=== PATIENT | male | born 1980 | race Caucasian/White ===

== ENCOUNTER 2023-03-31 23:03 | Emergency (ER) | payer BC ==
[2023-03-31] MEDS ORDERED: Lidocaine 1% w/Epinephrine 1:200K 30 ML VIAL ONE (23:34)
== END 2023-04-01 00:01 | disposition home or self-care (01) ==
LOC: CSHERS 23:03
DX: L76.22 Postprocedural hemorrhage of skin and subcutaneous tissue following other procedure (principal); I10 Essential (primary) hypertension
CPT/HCPCS: 12011

== ENCOUNTER 2024-03-20 17:46 | Emergency (ER) | payer BC ==
[2024-03-20 18:15] LABS: Bilirubin Neg (Negative); Blood, Urine Negative (Negative); Clarity Clear (Clear); Glucose, Urine (Dipstick) 250 mg/dL (Negative); Ketone, Urine Negative (Negative); Leukocyte Negative (Negative); Nitrite Negative (Negative); Protein, Urine (Dipstick) 15 mg/dl (Neg-Trace); Urobilinogen Normal mg/dL (Less than 2)
[2024-03-20 18:31] LABS: Bacteria/HPF 3+ HPF (None Seen); CAUTI Indications for Culture Pelvic or flank pain; Mucous/LPF 1+ LPF (<2+); RBC/HPF None Seen HPF (0-3); Squamous Epithelial 0-3 HPF (0-3); WBC/HPF 0-3 HPF (0-3)
[2024-03-20 18:32] LABS: Urine Culture Reflex No No
[2024-03-20 18:46] LABS: ALT (SGPT) 31 U/L (8-55); AST (SGOT) 27 U/L (5-34); Albumin 3.7 g/dL (3.5-5.0); Alkaline Phosphatase 79 U/L (40-110); Anion Gap 15 mmol/L (10-20); BUN (Urea Nitrogen) 11 mg/dL (8.9-20.6); Bilirubin, Total 0.6 mg/dL (0.2-1.2); Calc. Creatinine Clearance 0 mL/min (70-130); Calcium 8.3 mg/dL (7.8-10.44); Carbon Dioxide 28 mmol/L (22-29); Chloride 100 mmol/L (98-107); Estimated GFR 42; Globulin 3.6 g/dL (2.4-3.5); Glucose 200 mg/dL (70-105); Potassium 3.7 mmol/L (3.5-5.1); Protein, Total 7.3 g/dL (6.0-8.3); Sodium 139 mmol/L (136-145)
[2024-03-20 19:04] LABS: #Basophils 0.11 10x3/uL (0.0-0.2); #Eosinphils 0.15 10x3/uL (0.0-0.5); #Monocytes 1.03 10x3/uL (0.0-1.1); #Neutrophils 10.35 10x3/uL (1.5-8.4); %Basophils 0.8 % (0.0-2.0); %Eosinophils 1.1 % (0.0-6.0); %Lymphocytes 15.7 % (18.0-47.0); %Monocytes 7.3 % (0.0-10.0); %Neutrophils 73.6 % (40.0-75.0); Hematocrit 44.9 % (38.8-50.0); Hemoglobin 15.6 g/dL (13.5-17.5); Mean Corpuscular HGB CONC 34.7 g/dL (32.0-36.0); Mean Corpuscular Hemoglobin 32.6 pg (27.0-33.0); Mean Corpuscular Volume 93.9 fL (81.2-95.1); Mean Platelet Volume 9.1 fL (7.4-10.4); Platelet Count 399 10x3/uL (150-450); RBC Distribution Width 13.6 % (11.5-14.5); Red Blood Cell (RBC) Count 4.78 10x6/uL (4.32-5.72); White Blood Cell (WBC) Count 14.1 10x3/uL (3.5-10.5)
[2024-03-20] MEDS ORDERED: HYDROcodone/Acetaminophen 5/325 mg Tablet ONE (19:25)
== END 2024-03-20 20:42 | disposition home or self-care (01) ==
LOC: CSHERS 17:46
DX: N39.0 Urinary tract infection, site not specified (principal); I12.9 Hypertensive chronic kidney disease with stage 1 through stage 4 chronic kidney disease, or unspecified chronic kidney disease; N18.30 Chronic kidney disease, stage 3 unspecified
CPT/HCPCS: 36415; 74176; 80053; 81001; 85025

== ENCOUNTER 2024-03-28 18:09 | Emergency (ER) | payer BC ==
[2024-03-28 20:02] LABS: #Eosinphils 0.17 10x3/uL (0.0-0.5); #Monocytes 1.69 10x3/uL (0.0-1.1); #Neutrophils 13.08 10x3/uL (1.5-8.4); %Basophils 0.6 % (0.0-2.0); %Lymphocytes 10.4 % (18.0-47.0); %Neutrophils 76.9 % (40.0-75.0); Hematocrit 47.2 % (38.8-50.0); Hemoglobin 17.1 g/dL (13.5-17.5); Mean Corpuscular HGB CONC 36.2 g/dL (32.0-36.0); Mean Corpuscular Hemoglobin 33.4 pg (27.0-33.0); Mean Corpuscular Volume 92.2 fL (81.2-95.1); Platelet Count 316 10x3/uL (150-450); RBC Distribution Width 13.2 % (11.5-14.5); Red Blood Cell (RBC) Count 5.12 10x6/uL (4.32-5.72)
[2024-03-28] MEDS ORDERED: Morphine 4 MG/ML VIAL ONE ×2 (20:07→22:04)
[2024-03-28 20:18] LABS: ALT (SGPT) 16 U/L (8-55); AST (SGOT) 16 U/L (5-34); Albumin 3.5 g/dL (3.5-5.0); Alkaline Phosphatase 74 U/L (40-110); Anion Gap 15 mmol/L (10-20); BUN (Urea Nitrogen) 14 mg/dL (8.9-20.6); Bilirubin, Total 0.7 mg/dL (0.2-1.2); CK (CPK) 47 U/L (30-200); Calc. Creatinine Clearance 0 mL/min (70-130); Calcium 8.3 mg/dL (7.8-10.44); Carbon Dioxide 25 mmol/L (22-29); Chloride 101 mmol/L (98-107); Estimated GFR 51; Globulin 3.7 g/dL (2.4-3.5); Glucose 107 mg/dL (70-105); Magnesium 1.9 mg/dL (1.6-2.6); Potassium 3.5 mmol/L (3.5-5.1); Protein, Total 7.2 g/dL (6.0-8.3); Sodium 137 mmol/L (136-145)
== END 2024-03-28 22:25 | disposition home or self-care (01) ==
LOC: CSHERS 18:09
DX: S80.11XA Contusion of right lower leg, initial encounter (principal); I12.9 Hypertensive chronic kidney disease with stage 1 through stage 4 chronic kidney disease, or unspecified chronic kidney disease; N18.30 Chronic kidney disease, stage 3 unspecified; Z55.6 Problems related to health literacy; X58.XXXA Exposure to other specified factors, initial encounter
CPT/HCPCS: 80053; 82550; 83605; 83735; 85025; 96374; 96376; J2270

== ENCOUNTER 2024-04-08 10:03 | Outpatient (CLI) | payer BC | END 2024-04-08 10:04 | disposition home or self-care (01) | LOC: CSHRAD 10:03 | PROVIDERS: ATTEND Family Medicine | DX: M51.17 Intervertebral disc disorders with radiculopathy, lumbosacral region (principal); M47.26 Other spondylosis with radiculopathy, lumbar region; M47.27 Other spondylosis with radiculopathy, lumbosacral region | CPT/HCPCS: 72131 ==